=== PATIENT | female | born 1995 | race Caucasian/White ===

== ENCOUNTER 2016-11-13 05:44 | Inpatient (IN) | payer MEDICAID ==
[2016-11-13] VITALS (12 sets, daily range): BP systolic 117–142; BP diastolic 60–76; Ht 170.2 cm; Wt 125.2 kg
[~2016-11-13] VITALS: Ht 170.2 cm; Wt 125.2 kg
[2016-11-13] MEDS ORDERED: PRENATABS RX TA1 TAB PO (06:18)
[2016-11-13 06:31] LABS: HEMATOCRIT 33.8 % (36.0-48.0); HEMOGLOBIN 11.2 g/dL (12-16); MCH 30.8 pg (26.0-34.0); MCHC 33.1 g/dL (31.0-37.0); MCV 92.9 fL (80.0-100.0); MEAN PLATELET VOLUME 10.6 fL (7.4-10.4); RBC 3.64 10x6/uL (4.00-5.40); WBC 11.2 10x3/uL (4.8-10.8)
--- NOTE | 2016-11-13 09:31 | NUR ---
FUNDUS 2 CM BELOW UMBILLICUS, FIRM. MINIMAL LOCHIA
--- NOTE | 2016-11-13 10:00 | NUR ---
RECEIVED PT FROM VIA BED IN SEMI FOWLERS POSITION. IV IN LEFT WRIST; NS WITH 20 UNITS PITOCIN INFUSING. CONNECTED TO IVAC AT 125ML/HR. PHYSICAL ASSESSMENT DONE, SEE SHIFT ASSESS. BOWEL SOUNDS HYPOACTIVE IN LOWER QUADRANTS. FUNDUS FIRM U/1. LIGHT RUBRA LOCHIA NOTED ON SARITHA PADS. NO CLOTS EXPRESSED. BIKINI LINE INCISION NOTED TO BE CLEAN DRY AND INTACT WITH STERI STRIPS IN PLACE. [address] AND DRAINING TO GRAVITY WITH STAT LOCK ON RIGHT THIGH. CLEAR YELLOW URINE NOTED IN COLLECTION CONTAINER. SCDS CONNECTED TO PUMP AND TURNED ON. ICE PACK APPLIED TO ABDOMEN. PT RATING PAIN 7/10 AT INCISION SITE. FAMILY AT BEDSIDE. PT DENIES FURTHER NEEDS.
--- NOTE | 2016-11-13 10:22 | NUR ---
DEMEROL STOCKROOM CLERK IN PLACE PER ORDERS. PT INSTRUCTED ON USE AND DEMONSTRATES UNDERSTANDING AT THIS TIME. PT CONTINUES TO RATE PAIN 7/10 AT INCISION SITE.
--- NOTE | 2016-11-13 10:45 | NUR ---
FUNDUS FIRM U/U. LIGHT RUBRA LOCHIA NOTED ON SARITHA PADS. NO CLOTS EXPRESSED WITH MASSAGE. FAMILY REMAINS AT BEDSIDE. PT DENIES FURTHER NEEDS
--- NOTE | 2016-11-13 11:13 | NUR ---
PT IN HIGH FOWLERS POSITION. FUNDUS FIRM U/U. LIGHT RUBRA LOCHIA NOTED. NO CLOTS. PT MOVED UP IN BED WITH ASSISTANCE. O2 DISCONNECTED. 30MG TORADOL GIVEN SIVP PER PT REQUEST. PT CONTINUES TO RATE PAIN 7/10 AT INCISION SITE. PT DENIES FURTHER NEEDS AT THIS TIME.
--- NOTE | 2016-11-13 11:15 | NUR ---
FUNDUS FIRM U/U LIGHT RUBRA LOCHIA NOTED ON SARITHA PADS. CLEAN SARITHA PADS APPLIED. LEMON OHOGAMIUT COLA DRINK PROVIDED PER PT REQUEST. PT DENIES FURTHER NEEDS.
--- NOTE | 2016-11-13 12:00 | NUR ---
PT IN HIGH FOWLERS POSITION HOLDING INFANT. FAMILY AT BEDSIDE. PT STATES, "MY PAIN ACTUALLY FEELS BETTER". PT RATES PAIN 5/10 AND DENIES FURTHER NEEDS.
--- NOTE | 2016-11-13 13:45 | NUR ---
PT IN SEMI FOWLERS POSITION. PT LIFTS HIPS OFF OF BED. CLEAN PINK PAD AND CHUX APPLIED. PREVIOUS SARITHA PADS 90% SATURATED WITH RUBRA LOCHIA, NO CLOTS NOTED. FUNDUS REMAINS FIRM AT U/U. CLEAN GOWN APPLIED. PT UP TO HIGH FOWLERS POSITION TO AWAIT INFANT FOR FEEDING. PT RATES PAIN 4/10 AND DENIES FURTHER NEEDS.
--- NOTE | 2016-11-13 15:19 | NUR ---
PT LYING SUPINE IN BED. C/O MILD CRAMPING. INFORMED WHEN NEXT TORADOL DUE. PT STATES "I'M FINE". DENIES NEEDS.
--- NOTE | 2016-11-13 16:30 | NUR ---
PT IN HIGH FOWLERS POSITION. IN CRIB RESTING QUIETLY. PT RATES PAIN 7/10 IN HER HEAD. PT REPORTS FEELING HOT. TEMP 98.5 AXILLARY. ROOM TEMP. 75 PER NURSERY NURSE. NO BLANKETS ON PT. ICE PACK ON INCISION AND NECK PER PT REQUEST. PT REPORTS CRAMPING AND INCISIONAL PAIN 8/10. LABORATORY EQUIPMENT INSTALLER DEMEROL IN PLACE. PT REMINDED TO PRESS BUTTON AT THIS TIME. PT TO SUPINE POSITION WITH HOB AT 30 DEGREES. FUNDUS FIRM. U/U. LIGHT RUBRA LOCHIA NOTED ON SARITHA PADS. NO CLOTS NOTED. PT REPORTS A DECREASE IN HEADACHE PAIN AFTER LYING FLAT.
--- NOTE | 2016-11-13 16:45 | NUR ---
COLA DRINK PROVIDED. PT DENIES FURTHER NEEDS.
--- NOTE | 2016-11-13 17:19 | NUR ---
PT IN RIGHT TILT POSITION. RATES PAIN 8/10. TORADOL 30MG GIVEN SLOW IVP. PT DENIES FURTHER NEEDS AT THIS TIME
--- NOTE | 2016-11-13 18:45 | NUR ---
PT IN HIGH FOWLERS POSITION VISITING WITH FAMILY. PT DENIES HEADACHE AND STATES THAT HER PAIN IS NOW 5/10 AT INCISION SITE. HERNANDEZ EMPTIED AT THIS TIME. SARITHA PADS CHANGED. 1 PAD 90% SATURATED WITH RUBRA LOCHIA; NO CLOTS. PT DENIES NEEDS AT THIS TIME.
--- NOTE | 2016-11-13 19:35 | NUR ---
PT. AWAKE AND ORIENTED. LYING ON BACK WITH HOB AT 30 DEGREES. NUMEROUS VISITORS AT BEDSIDE. ABD INCISION NOTED WITH STERI STRIPS THAT ARE CLEAN AND DRY. BREATH SOUNDS CLEAR AND BOWEL SOUNDS AUDIBLE. LOCHIA RUBRA SCANT. SCDS ON AND FUNCTIONAL. IV OF NS WITH PTIOCIN NOTED INFUSING AT 125CC/HR VIA PUMP IN LT. WRIST AREA. NO REDNESS NOR EDEMA NOTED AT IV SITE. ICE CAP NOTED LYING ON TOP OF SMALL PILLOW. ICE CAP REPLACED TO ABD. INCISIONAL AREA. BOWEL SOUNDS HYPOACTIVE. HERNANDEZ PATENT AND DRAINING. DEMEROL PRECAST WORKER NOTED FOR USE. PT. RATES PAIN A 4 OF 10 AND STATES IT IS ABD. CRAMPING. DISCUSSED ABD. CRAMPING TO WHY IT OCCURS AND THE BENEFIT OF THE CRAMPING. INFORMED PT. THAT WITH PREGNANCIES AFTER THE FIRST , ABD. CRAMPING IS USUALLY MORE NOTICED BY PATIENTS. PT. STATES UNDERSTANDING TO ALL. INFANT IN OPEN CRIB AT BEDSIDE. PT MENTIONED THAT WHEN IT IS DUE, THAT SHE DESIRES ANOTHER DOSE OF TORADOL STATING THAT "IT WORKS REALLY WELL FOR THE CRAMPING. "
--- NOTE | 2016-11-13 19:48 | NUR ---
DR. HUGHES CALLED AND THIS NURSE INQUIRED IF HERNANDEZ, MAINTAINER OPERATOR AND IV COULD BE STOPPED AND PT. BE AMBULATORY TO BATHROOM. ORDER RECEIVED.
--- NOTE | 2016-11-13 20:38 | NUR ---
PT. CALLED THIS NURSE TO ROOM TO REPORT THAT SHE FEELS HERNANDEZ IS LEAKING. HERNANDEZ CHECKED WITHOUT ANY WETNESS NOTED ON SARITHA PAD OTHER THAN SCANT LOCHIA AT BACK OF PAD. DISCUSSED WITH PT. POC OF DISCONTINUING HERNANDEZ AND PT. AGREEABLE. HERNANDEZ DISCONTINUED WITH APPROX. 300CC IN DRAINAGE BAG. PT. DESIRES AN ADDITIONAL DOSE OF TORADOL PRIOR TO SALINE LOCKING IV.
--- NOTE | 2016-11-13 20:51 | NUR ---
TORADOL GIVEN SLOW IVP OVER 3 MINUTES.
--- NOTE | 2016-11-13 20:56 | NUR ---
IV SOCIAL MEDIA DEVELOPER OFF. IV OFF AND SALINE LOCKED. PT. UNDERSTANDS POC. LOCHIA RUBRA SCANT. ABD. STERI STRIPS DRY AND INTACK. INFANT AT BEDSIDE IN OPEN CRIB. SIDE RAILS UP X 2 AND PT. UNDERSTANDS THAT SHE IS TO CALL FOR ASSISTANCE PRIOR TO ATTEMPTING TO GET OUT OF BED. ICE CAP REFILLED TO PLACE ON ABD. INCISION AREA.
--- NOTE | 2016-11-13 21:02 | NUR ---
POSITIONED TO RT SIDE AND SUPPORTED WITH PILLOWS. PT. STATES SHE HAS HEADACHE AND DESIRES ICE CAP FOR HEAD. SAME GIVEN. PT. HAS HOB ELEVATED APPROX. 15-30 DEGREES. PT. STATES COLA DRINK TOOK HEADACHE AWAY EARLIER. OFFERED COLA DRINK BUT PT. DECLINED STATING SHE STILL HAD SOME. INFANT IN OPEN CRIB AT BEDSIDE.
--- NOTE | 2016-11-13 22:00 | NUR ---
LYING IN BED WITH HOB AT 15 DEGREES. STATES THAT SHE IS PAIN FREE AT THIS TIME. REPORTS THAT SHE FEELS THAT SHE WILL NEED TO GET UP TO BATHROOM BEFORE 11PM AND WILL CALL THE NURSE.
--- NOTE | 2016-11-13 22:50 | NUR ---
PT. REQUESTING TO GET UP TO BATHROOM TO VOID. PT. UP TO SIDE OF BED WITH ASSISTANCE. AMBULATORY TO BATHROOM WITH STEADY GAIT. VOIDED 300CC. SARITHA PANTIES AND PADS APPLIED. GOWN CHANGED. UNDERPADS ON BED CHANGED. BACK TO BED. SCDS REAPPLIED. NO REDNESS NOR C/O PAIN IN LEGS. SCDS FUNCTIONAL. PT. STATES WHEN SHE WAS UP HER BACK FELT BETTER. REQUESTING PAIN MED ON RETURN TO BED.
--- NOTE | 2016-11-13 23:16 | NUR ---
DEMEROL 100MG TAB GIVEN TO PT. FOR C/O INCISIONAL PAIN AND QUINN. PT. COMPLAINING OF QUINN WHEN SHE BECAME UPRIGHT ON WAY TO BATHROOM. WHEN BACK TO BED, HOB LOWERED AND ENCOURAGED PT. TO KEEP HOB DOWN . PT. STATED UNDERSTANDING.
--- NOTE | 2016-11-14 00:10 | NUR ---
PT. LYING ON BACK WITH EYES CLOSED. RESPIRATIONS REGULAR.
--- NOTE | 2016-11-14 01:45 | NUR ---
PT. AWAKENED PER NBN STAFF TO FEED .
--- NOTE | 2016-11-14 02:17 | NUR ---
PT. STATES URGE TO VOID. PLACED IN OPEN CRIB AT BEDSIDE. MINIMAL ASSISTANCE REQUIRED FOR AMBULATION. VOIDED. SARITHA PADS CHANGED. LOCHIA RUBRA SCANT. BACK TO BED. PT. REPORTS PASSING FLATUS. DESIRES PAIN MED. WHEN DUE. RELATES THAT SHE WAS HEADACHE FREE UNTIL HER HEAD WAS RAISED FOR FEEDING OF INFANT. INFORMED THAT IT WOULD BE PASSED ON IN REPORT TO CONSULT ANESTHESIA REGARDING HER HEADACHES.
--- NOTE | 2016-11-14 03:02 | NUR ---
LYING ON BACK WITH EYES CLOSED. RESPIRATIONS REGULAR. PT. DOES NOT AROUSE TO THIS NURSE IN ROOM. FOB SLEEPING ON SOFA. IN OPEN CRIB AT BEDSIDE. RESPIRATIONS NOTED AND OCCASIONALLY WIGGLES IN THE BED.
--- NOTE | 2016-11-14 03:33 | NUR ---
C/O INCISIONAL PAIN THAT SHE RATES A 7 OF 10 ON PAIN SCALE AND REQUESTED SAME DOSAGE OF MEDICATION THAT SHE HAD EARLIER. MED GIVEN REQUESTED. FOB SITTING ON SOFA AND HOLDING .
[2016-11-14 03:34] VITALS: BP 113/65
--- NOTE | 2016-11-14 04:15 | NUR ---
ASSISTED PT. TO BATHROOM. GAIT STEADY. PT. REPORTS HEADACHE WITH STANDING. STATES HER BACK WHERE SHE WAS "STUCK FOR EPIDURAL NUMEROUS TIMES" IS MORE PAINFUL THAN HER ABD. INCISION. NO ABNORMAL FINDINGS AT SPINAL SITE IE; BRUISING OR BULGING. ASSISTED TO GET COMFORTABLE IN BED WITH PILLOW UNDER BACK. SCD SLEEVES CHANGED DUE TO PREVIOUS ONES BEING TOO LARGE FOR PT. LEGS AND NEW SLEEVES APPLIED AND PUMP ON. PT. VOIDED WHILE IN BATHROOM AND WAS ASSISTED WITH PUTTING ON PADS. RETURNED TO [facility] PER PT AND FOB REQUEST.
--- NOTE | 2016-11-14 06:16 | NUR ---
LYING ON BACK WITH EYES CLOSED. RESPIRATIONS REGULAR.
[2016-11-14 06:17] LABS: RAPID PLASMA REAGIN Non Reactive (Non Reactive)
[2016-11-14 06:33] LABS: HEMATOCRIT 27.8 % (36.0-48.0); HEMOGLOBIN 9.2 g/dL (12-16); MCH 31.1 pg (26.0-34.0); MCHC 33.1 g/dL (31.0-37.0); MCV 93.9 fL (80.0-100.0); MEAN PLATELET VOLUME 10.5 fL (7.4-10.4); RBC 2.96 10x6/uL (4.00-5.40); WBC 11.9 10x3/uL (4.8-10.8)
--- NOTE | 2016-11-14 07:23 | OP ---
PATIENT NAME: LULU AQUINO MEDICAL RECORD: [id number] :94 LOCATION:[id number] ADMISSION DATE:11/13/16 SURGEON: RADHA SALAZAR MD DATE OF OPERATION: 11/13/2016 PREOPERATIVE DIAGNOSES: A 39 weeks and 6-day gestational age, previous section. POSTOPERATIVE DIAGNOSES: A 39 weeks and 6-day gestational age, previous section. PROCEDURE: Repeat low transverse section. SURGEON: Radha Salazar MD ANESTHESIA: Spinal. FINDINGS: An 8 pound 14.3 ounce female infant in cephalic presentation. ESTIMATED BLOOD LOSS: 800 cc. COMPLICATIONS OF PROCEDURE: None. OPERATIVE NOTE: The patient was taken to the OR and under adequate spinal anesthesia, prepped and draped in the usual manner for abdominal procedures. A transverse incision was made in the lower abdomen and extended through subcutaneous tissue and fascia, dividing muscles in the midline in the Pfannenstiel manner. Peritoneum was then elevated and incised and this incision extended from the symphysis pubis to within 4 cm of the umbilicus, avoiding the bladder and abdominal organs. A transverse incision was then made in the lower uterine segment and infant was delivered through the uteroabdominal incision from a vertex presentation. was thoroughly suctioned, cord doubly clamped and ligated and handed to waiting nursery personnel. Placenta was then removed manually. The uterus was closed in two layers, first layer in a running interlocking #1 chromic suture, second layer in a running #1 chromic suture. Pelvis was then copiously irrigated and suctioned and hemostasis was confirmed. The fascial layer closed in a running noninterlocking #1 PDS loop suture. Skin incision closed in 2 layers, first layer in a running 2-0 plain gut suture followed by a subcuticular 2-0 plain gut suture. Dermabond was applied, a Steri-Strip dressing was applied and the patient went to the recovery area in good condition. TRANSINT:[id number] Voice Confirmation ID: [id number] DOCUMENT ID: [id number] RADHA SALAZAR MD at 0723 CC: [id number] DICTATION DATE: 11/13/16 0919 ASSET AVAILABILITY LEADER: 11/13/162004 [place] [address]
--- NOTE | 2016-11-14 07:29 | NUR ---
Called to dae, pt ask if she can have pain med now. Chanda checked and verified. Explained to pt that she could have at this time, when asked rates pain in back at 7/10 and cramping/burning at incision site. Pt getting herself up to bathroom and denies needing any assistance.
--- NOTE | 2016-11-14 07:40 | NUR ---
Dr White notified and report given of pt continue headache when sitting up or walking. states he will be to evaluate.
--- NOTE | 2016-11-14 08:00 | NUR ---
Am assessment completed as charted on flowsheet. VSS as on graphic. Pt complains of increased pain in her back and states "it is just aching and throbbing." rates her pain at 7/10, meds given as charted on emar. Bikini incision with steri strips in place clean and dry. fundus firm at u/1 with light bleeding to mitzi pad and she denies any clots of heavy bleeding with voids. Pt continue to complain with headache when she sit up in bed or gets up to amb, states up and to bathroom is all she can handle, she also states understanding that anesthesia has been notified and will be coming to evaluate for treatment options. Saline lock to left forarm with no redness or tenderness. SCD on per protocol and pump is on. Bowel sounds active x 4, regurlar diet ordered. Pt denies any needs or concerns at this time. Side rails up x 2 with phone and call light in reach.
--- NOTE | 2016-11-14 09:45 | NUR ---
Pt reassured that anesthesia would be to evaluate her headache she states her understanding. brought to room per Pt request. Warm blanket provided for pt back. Side rails up x 2 with phone and call light in reach.
--- NOTE | 2016-11-14 11:07 | NUR ---
Pt transferred off unit by stretcher up to OR with surgery staff, this is per Dr White request so that treatment for her post anesthesia headache may be done.
--- NOTE | 2016-11-14 11:55 | NUR ---
Received pt back to room post epidural blood patch, she reports that her headache is almost gone and rates her pain at 0/10 at this time. Transfers self to room bed and understands that she must remain in bed on her back for another 20-30minutes. Nursery notified that pt was back and would like brought to room. Side rails up x 2 with phone and call light in reach, pt mother at bedside.
--- NOTE | 2016-11-14 12:17 | NUR ---
PT CALLS ON LIGHT. REQUESTS PAIN MEDICATION FOR BACK AND INCISIONAL PAIN OF "7" ON 0-10 PAIN SCALE. DEMEROL 100 MG GIVEN PO ORDERED. PT SITTING UP IN BED. CONSUMING FOOD BROUGHT IN BY FAMILY. PT WILL NOTIFY NURSE FOR SUPPOSITORY AND SHOWER.
--- NOTE | 2016-11-14 12:20 | NUR ---
baby to mom at her request. id bands verified. update given.
--- NOTE | 2016-11-14 12:45 | NUR ---
Pt walking about room without complaint, denies headache at this time. Provided with towels, gown, mitzi pad and panties for her to shower. Denies needing any assistance and states that her mother will be in room but will call if nurse is needed.
--- NOTE | 2016-11-14 13:45 | NUR ---
PT CALLS OUT WITH REQUEST FOR PAIN MED IF POSSIBLE. MOTRIN GIVEN CHARTED ON EMAR FOR CRAMPING THAT SHE RATES 6-7/10 LARGE CUP OF ICE WATER ALSO GIVEN AT THIS TIME. NO OTHER NEEDS.
--- NOTE | 2016-11-14 14:00 | NUR ---
baby feeding well. discusssed feedings with mom.
--- NOTE | 2016-11-14 15:30 | NUR ---
DENIES NEEDS AT THIS TIME. IN CRIB AT BEDSIDE, SIDE RAILS UP X 2 AND CALL LIGHT IN REACH.
--- NOTE | 2016-11-14 16:15 | NUR ---
PT AMB IN HALLS WITH SIG OTHER, BEFORE GOING BACK TO HER ROOM SHE ASK FOR HER PAIN MED. THIS IS TAKEN TO ROOM WITH LARGE CUP OF ICE WATER, RATES PAIN AT 7/10 BUT STATES IT IS MOSTLY AT INCISION SITE AND NO LONGER IN HER BACK, DENIES HEADACHE. INFANT BROUGHT BACK TO ROOM PER PT REQUEST.
--- NOTE | 2016-11-14 17:30 | NUR ---
PT CALLS OUT WITH REQUEST FOR BOTTLE SINCE IT WAS TIME FOR FEEDING. THIS IS TAKEN TO ROOM PER NURSERY NURSE.
--- NOTE | 2016-11-14 19:11 | NUR ---
RCVD PT FROM AM SHIFT. PT SITTING UP IN BED WITH HOB 45 DEGREES. RATES PAIN CURRENTLY 4/10 AND TOLERABLE UNTIL SHE CAN HAVE HER PAIN MEDICATIONS. PT REQUESTS TO TAKE MOTRIN AND DEMEROL AT THE SAME TIME. BREATH SOUNDS CLEAR AND UNLABORED X2. HR-RRR, PPP, NO EDEMA NOTED TO EXTREMITIES. SL NOTED TO LT WRIST. D/C'D IV AT THIS TIME WITH CATH TIP IN TACT AND BANDAID PLACED AT SITE. FUNDUS FIRM AND U/1, ML. SCANT LOCHIA RUBRA NOTED ON PERIPAD. BLI CLEAN AND INTACT WITH SOME MOISTURE NOTED TO STERISTRIPS. DRY PERIPAD PLACED ON SITE AND TEACHING DONE ON KEEPING INCISION CLEAN AND DRY. PT VERBALIZED UNDERSTANDING. PT DENIES FURTHER NEEDS AT THIS TIME. WILL CONT POC. BED LOW, WHEELS LOCKED, CL IN REACH, SIDE RAILS UP X2.
[2016-11-14 19:31] VITALS: BP 127/76
--- NOTE | 2016-11-14 20:26 | NUR ---
DEMEROL 100MG AND MOTRIN 600MG X 1 TAB GIVEN PER PT REQUEST FOR PAIN RATED 7/10. PT DENIES FURTHER NEEDS AT THIS TIME. FAMILY REMAINS AT BEDSIDE.
--- NOTE | 2016-11-14 21:11 | NUR ---
PAIN REASSESSMENT COMPLETE. PT RATES PAIN CURRENTLY 4/10 AND TOLERABLE. 2 CUPS OF ICE PROVIDED PER PT REQUEST. PT DENIES FURTHER NEEDS AT THIS TIME. FOB AND FAMILY AT BEDSIDE.
--- NOTE | 2016-11-14 21:56 | NUR ---
SITTING UP IN BED HOLDING . CHEERFUL AND STATES SHE IS HEADACHE FREE. DENIES ANY NEEDS.
[2016-11-14 23:48] VITALS: BP 111/67
--- NOTE | 2016-11-14 23:52 | NUR ---
ROUNDS MADE AND VS ASSESSED. PT SITTING UP @ 45 DEGREES WITH UP IN ARMS. PT RATES PAIN CURRENTLY 5/10, BUT STATES "I WANT TO BE ABLE TO TAKE THE MOTRIN AND DEMEROL TOGETHER SO I'LL WAIT UNTIL I CAN DO THAT." PT DENIES FURTHER NEEDS AT THIS TIME. WILL CONT. TO MONITOR.
--- NOTE | 2016-11-15 02:20 | NUR ---
DEMEROL 100MG AND MOTRIN 600MG X1 TAB GIVEN PER PT REQUEST FOR PAIN RATED 7/10 AT THIS TIME. IN OPEN CRIB AT BEDSIDE, FOB REMAINS IN ROOM. PT DENIES FURTHER NEEDS. WILL CONT. TO MONITOR.
--- NOTE | 2016-11-15 03:05 | NUR ---
PAIN REASSESSMENT COMPLETE. PT RESTING ON BACK, EYES CLOSED, RESP EVEN & UNLABORED, PT LEFT UNDISTURBED AT THIS TIME. FOB SLEEPING ON BEDSIDE COUCH.
--- NOTE | 2016-11-15 05:30 | NUR ---
PT. LYING ON BACK WITH HOB AT 15 DEGREES. AWAKE AT PRESENT WITH TV PLAYING. STATES SHE IS FEELING FINE AND SLEPT WELL. DENIES ANY NEEDS AT THIS TIME.
--- NOTE | 2016-11-15 07:50 | NUR ---
DR SALAZAR TO PT'S ROOM AT THIS TIME.
--- NOTE | 2016-11-15 08:05 | NUR ---
Upon entering room pt is awake and sitting up in bed while feeding . Denies needs at this time, explained that this rn would return when she is finished feeding to complete assessment.
[2016-11-15 08:33] VITALS: BP 123/71
--- NOTE | 2016-11-15 08:35 | NUR ---
AM Assessment completed as seen on flowsheet. Pt rates her pain after getting up to bathroom at 6/10, meds given as pt asked for as charted on emar. Bikini incision remains clean and dry with steri strips in place. Pt states that she dis have a bm last night and understands need to continue taking stool softner when discharged home. Questions answered about discharge and pt states that she has already gotten her post delivery clinic appointment. NO other needs or questions at this time. in crib at bedside.
--- NOTE | 2016-11-15 09:45 | NUR ---
large cup of ice provided per pt request. Denies pain or cramping at this time. remains in room and sig other on couch.
[2016-11-15] MEDS ORDERED: IBUPROFEN600 MG PO (10:40)
[2016-11-15] MEDS ORDERED: MEPERIDINE HCL50 MG PO (10:41)
--- NOTE | 2016-11-15 11:15 | NUR ---
Verbal and written discharge instructions given with written scripts given for Demerol 50mg and Motrin 600mg, with printing monograph on each script. Pt states understanding of incision care and what to do if suspected infection. Denies any concerns or questions. buckled in to carrier. Pt taken out to car by wheelchair. Home with sig other and .
== END 2016-11-15 11:45 | disposition home or self-care (01) | DRG 766 ==
LOC: D.LD 05:44
PROVIDERS: ADMIT Obstetrics & Gynecology
PROC: 10D00Z1 Extraction of Products of Conception, Low, Open Approach (ICD-10-PCS; principal; 2016-11-13 07:30)
PROC: 3E0R3GC Introduction of Other Therapeutic Substance into Spinal Canal, Percutaneous Approach (ICD-10-PCS; 2016-11-14)
DX: O99.824 Streptococcus B carrier state complicating childbirth (principal); O34.219 Maternal care for unspecified type scar from previous cesarean delivery; Z3A.39 39 weeks gestation of pregnancy; Z37.0 Single live birth; O74.5 Spinal and epidural anesthesia-induced headache during labor and delivery

== ENCOUNTER 2016-11-18 11:36 | Emergency (ER) | payer MEDICAID ==
[2016-11-13 10:01] VITALS: BMI 43.2
[~2016-11-18 11:36] MED LIST: IBUPROFEN600 MG PO; MEPERIDINE HCL50 MG PO; PRENATABS RX TA1 TAB PO
== END 2016-11-18 13:28 | disposition home or self-care (01) ==
LOC: D.ER 11:36
DX: G97.1 Other reaction to spinal and lumbar puncture (principal)

== ENCOUNTER 2019-02-17 16:51 | Emergency (ER) | payer MEDICAID ==
[~2019-02-17] VITALS: Ht 170.2 cm; Wt 108.2 kg
[2019-02-17 17:17] VITALS: Ht 170.2 cm; Wt 108.2 kg
[2019-02-17 17:42] LABS: BASOPHILS 0.1 % (0-2); EOSINOPHILS 1.2 % (0-7); HEMATOCRIT 35.9 % (36.0-48.0); IMMATURE GRANULOCYTES 0.1 % (0-5); LYMPHOCYTES 28.8 % (15-50); MCH 29.6 pg (26.0-34.0); MCHC 33.4 g/dL (31.0-37.0); MCV 88.4 fL (80.0-100.0); MEAN PLATELET VOLUME 9.7 fL (7.4-10.4); MONOCYTES 5.6 % (2-11); NEUTROPHILS 64.2 % (40-80); PLATELET COUNT 180 10x3/uL (130-400); RBC 4.06 10x6/uL (4.00-5.40); RDW 13.7 % (11.5-14.5); WBC 10.2 10x3/uL (4.8-10.8)
[2019-02-17 17:42] LABS: APPEARANCE CLEAR (CLEAR); COLOR YELLOW (YELLOW)
[2019-02-17 17:43] LABS: BILIRUBIN NEGATIVE (NEGATIVE); GLUCOSE NEGATIVE (NEGATIVE); KETONE NEGATIVE (NEGATIVE); NITRITE NEGATIVE (NEGATIVE); PROTEIN NEGATIVE (NEGATIVE); UROBILINOGEN NORMAL (NORMAL)
[2019-02-17 17:44] LABS: BACTERIA FEW /hpf (NONE SEEN); EPITHELIAL CELLS OCC /hpf (0-5); HCG URINE POSITIVE (NEGATIVE); RED CELLS - URINE 0-5 /hpf (0-5); WHITE CELLS - URINE OCC /hpf (0-5)
[2019-02-17 18:00] LABS: ALBUMIN 3.6 g/dL (3.4-5.0); ALKALINE PHOSPHATASE 60 U/L (46-116); ALT (SGPT) 37 U/L (10-68); BILIRUBIN - TOTAL 0.25 mg/dL (0.2-1.3); CALC OSMOLALITY 278 mosm/kg (275-300); CALCIUM 8.5 mg/dL (8.5-10.1); CARBON DIOXIDE 26.9 mmol/L (21.0-32.0); CHLORIDE - SERUM 107 mmol/L (98-107); CREATININE - SERUM 0.9 mg/dL (0.6-1.3); GLUCOSE 87 mg/dL (74-106); POTASSIUM - SERUM 3.8 mmol/L (3.5-5.1); PROTEIN - SERUM 6.9 g/dL (6.4-8.2); SODIUM 141 mmol/L (136-145); UREA NITROGEN 10 mg/dL (7-18); eGFR NON AFRICAN AMERICAN 81 mL/min (90-120)
[2019-02-17 21:48] VITALS: BP 122/85
== END 2019-02-17 21:48 | disposition home or self-care (01) ==
LOC: D.ER 16:51
PROVIDERS: Family Medicine
DX: R10.9 Unspecified abdominal pain (principal); N83.202 Unspecified ovarian cyst, left side; R10.2 Pelvic and perineal pain

== ENCOUNTER 2019-02-20 06:37 | Emergency (ER) | payer MEDICAID ==
[~2019-02-20] VITALS: Ht 170.2 cm; Wt 109.1 kg
[2019-02-20 06:42] VITALS: Ht 170.2 cm; Wt 109.1 kg
[2019-02-20 07:16] LABS: BASOPHILS 0.1 % (0-2); HEMATOCRIT 37.5 % (36.0-48.0); HEMOGLOBIN 12.4 g/dL (12-16); IMMATURE GRANULOCYTES 0.1 % (0-5); MCH 29.5 pg (26.0-34.0); MCHC 33.1 g/dL (31.0-37.0); MCV 89.3 fL (80.0-100.0); MEAN PLATELET VOLUME 10.1 fL (7.4-10.4); MONOCYTES 6.3 % (2-11); NEUTROPHILS 69.5 % (40-80); PLATELET COUNT 177 10x3/uL (130-400); WBC 8.6 10x3/uL (4.8-10.8)
[2019-02-20 07:41] LABS: APPEARANCE CLOUDY (CLEAR); BILIRUBIN NEGATIVE (NEGATIVE); COLOR RED (YELLOW); GLUCOSE NEGATIVE (NEGATIVE); KETONE NEGATIVE (NEGATIVE); NITRITE NEGATIVE (NEGATIVE); PROTEIN 2+ mg/dL (NEGATIVE); SPECIFIC GRAVITY 1.015 (1.005-1.020); UROBILINOGEN NORMAL (NORMAL)
[2019-02-20 07:45] LABS: BACTERIA FEW /hpf (NONE SEEN); EPITHELIAL CELLS 0-5 /hpf (0-5); RED CELLS - URINE >50 /hpf (0-5); WHITE CELLS - URINE 0-5 /hpf (0-5)
[2019-02-20 07:46] LABS: ALBUMIN 3.5 g/dL (3.4-5.0); ALKALINE PHOSPHATASE 69 U/L (46-116); ALT (SGPT) 35 U/L (10-68); BILIRUBIN - TOTAL 0.28 mg/dL (0.2-1.3); CALC OSMOLALITY 279 mosm/kg (275-300); CALCIUM 8.6 mg/dL (8.5-10.1); CARBON DIOXIDE 24.2 mmol/L (21.0-32.0); CHLORIDE - SERUM 108 mmol/L (98-107); CREATININE - SERUM 0.7 mg/dL (0.6-1.3); GLUCOSE 99 mg/dL (74-106); POTASSIUM - SERUM 3.9 mmol/L (3.5-5.1); PROTEIN - SERUM 6.8 g/dL (6.4-8.2); SODIUM 141 mmol/L (136-145); UREA NITROGEN 9 mg/dL (7-18); eGFR NON AFRICAN AMERICAN > 90 mL/min (90-120)
[2019-02-20 07:51] LABS: HCG - QUANTITATIVE (MATERNAL) 73 mIU/mL
[2019-02-20 09:45] VITALS: BP 128/73
== END 2019-02-20 09:47 | disposition home or self-care (01) ==
LOC: D.ER 06:37
PROVIDERS: Family Medicine
DX: O03.9 Complete or unspecified spontaneous abortion without complication (principal)

== ENCOUNTER 2019-12-03 20:15 | Emergency (ER) | payer MEDICAID ==
[~2019-12-03] VITALS: Ht 170.2 cm; Wt 109.1 kg
[2019-12-03 20:56] VITALS: Ht 170.2 cm; Wt 109.1 kg
[2019-12-03 21:43] LABS: BASOPHILS 0.1 % (0-2); EOSINOPHILS 1.3 % (0-7); HEMATOCRIT 32.9 % (36.0-48.0); HEMOGLOBIN 10.6 g/dL (12-16); LYMPHOCYTES 33.5 % (15-50); MCH 29.8 pg (26.0-34.0); MCHC 32.2 g/dL (31.0-37.0); MCV 92.4 fL (80.0-100.0); MONOCYTES 5.6 % (2-11); NEUTROPHILS 59.5 % (40-80); PLATELET COUNT 182 10x3/uL (130-400); RBC 3.56 10x6/uL (4.00-5.40); RDW 13.4 % (11.5-14.5); WBC 8.2 10x3/uL (4.8-10.8)
[2019-12-03 21:43] LABS: BILIRUBIN NEGATIVE (NEGATIVE); GLUCOSE NEGATIVE (NEGATIVE); KETONE NEGATIVE (NEGATIVE); NITRITE NEGATIVE (NEGATIVE); UROBILINOGEN NORMAL (NORMAL)
[2019-12-03 21:46] LABS: CALC OSMOLALITY 271 mosm/kg (275-300); CALCIUM 8.5 mg/dL (8.5-10.1); CARBON DIOXIDE 26.6 mmol/L (21.0-32.0); CHLORIDE - SERUM 104 mmol/L (98-107); CREATININE - SERUM 0.8 mg/dL (0.6-1.3); GLUCOSE 98 mg/dL (74-106); POTASSIUM - SERUM 3.5 mmol/L (3.5-5.1); SODIUM 137 mmol/L (136-145); UREA NITROGEN 8 mg/dL (7-18); eGFR NON AFRICAN AMERICAN > 90 mL/min (90-120)
[2019-12-03 22:14] LABS: ALKALINE PHOSPHATASE 70 U/L (30-120); ALT (SGPT) 21 U/L (10-68); BILIRUBIN - TOTAL 0.09 mg/dL (0.2-1.3); HCG - QUANTITATIVE (MATERNAL) 53846 mIU/mL; MAGNESIUM - SERUM 1.8 mg/dL (1.8-2.4); PROTEIN - SERUM 6.4 g/dL (6.4-8.2)
[2019-12-03] MEDS ORDERED: HYDROCODON-ACE1 EAC7 PO (23:12)
[2019-12-03 23:40] VITALS: BP 110/72
== END 2019-12-03 23:38 | disposition home or self-care (01) ==
LOC: D.ER 20:15
PROVIDERS: Family Medicine
DX: O26.891 Other specified pregnancy related conditions, first trimester (principal); Z3A.12 12 weeks gestation of pregnancy; R03.0 Elevated blood-pressure reading, without diagnosis of hypertension; R51 Headache; R42 Dizziness and giddiness

== ENCOUNTER 2019-12-19 07:32 | Emergency (ER) | payer MEDICAID ==
[~2019-12-19] VITALS: Ht 170.2 cm; Wt 115.9 kg
[~2019-12-19 07:32] MED LIST changes: +HYDROCODON-ACE1 EAC7 PO
[2019-12-19 07:37] VITALS: Ht 170.2 cm; Wt 115.9 kg
[2019-12-19] MEDS ORDERED: BUTALB-APAP-CA1 EACH PO (09:11)
[2019-12-19 09:19] VITALS: BP 122/68
== END 2019-12-19 09:20 | disposition home or self-care (01) ==
LOC: D.ER 07:32
DX: O26.92 Pregnancy related conditions, unspecified, second trimester (principal); Z3A.15 15 weeks gestation of pregnancy; G43.909 Migraine, unspecified, not intractable, without status migrainosus